=== PATIENT | female | born 1965 | race Caucasian/White ===

== ENCOUNTER 2021-03-23 16:44 | Emergency (ER) | payer OTHER ==
[2021-03-23 16:52] VITALS: TEMP 98.6
[2021-03-23] MEDS ORDERED: SODIUM CHLORIDE 1,000 ML IV STA (16:55)
[2021-03-23] MEDS ORDERED: ONDANSETRON 4 MG/2 ML VIAL IVPUSH ONE ×2 (16:55→18:38)
[2021-03-23] MEDS ORDERED: ACETAMINOPHEN 1000 MG/100 ML VIAL (NON FORMULARY) IVPB ONE (17:15)
[2021-03-23] MEDS ORDERED: METOCLOPRAMIDE HCL INJECTION 10 MG/2 ML VIAL IVPUSH ONE (17:15)
[2021-03-23] MEDS ORDERED: ONDANSETRON 4 MG/2 ML VIAL ONE ×2 (17:38→18:40)
[2021-03-23 17:46] LABS: HEMATOCRIT 22.6 % (32.4-45.2); HEMOGLOBIN 8.7 GM/dl (10.7-15.3); MCH 36.9 pg (25.7-33.7); MCHC 38.5 g/dl (32.0-36.0); MEAN CELL VOLUME 95.8 fl (80-96); MEAN PLT VOLUME 7.5 fl (7.5-11.1); RBC 2.36 M/mm3 (3.60-5.2); RDW 15.3 % (11.6-15.6)
[2021-03-23 17:54] LABS: ACTIVATED PTT 23.2 SECONDS (25.2-36.5)
[2021-03-23 17:55] LABS: WHITE BLOOD COUNT 235.9 K/mm3 (4.0-10.8)
[2021-03-23 17:56] LABS: PLATELET COUNT 47 K/MM3 (134-434)
[2021-03-23 17:59] LABS: INR 1.65 (0.82-1.09); PROTHROMBIN TIME (PATIENT) 17.9 SEC (10.2-13.0)
[2021-03-23 17:59] LABS: ALBUMIN 3.2 g/dl (3.4-5.0); ALK PHOS 123 U/L (45-117); ANION GAP 11 MMOL/L (8-16); BILIRUBIN,TOTAL 0.7 mg/dl (0.2-1); CALCIUM 8.3 mg/dl (8.5-10); CHLORIDE 102 mmol/L (98-107); CO2 22 mmol/L (21-32); CREATININE 0.8 mg/dl (0.55-1.3); GLUCOSE,RANDOM 138 mg/dl (74-106); MAGNESIUM 1.8 mg/dL (1.8-2.4); SGOT/AST 71 U/L (15-37); SGPT/ALT 61 U/L (13-61); SODIUM 135 mmol/L (136-145); TOT PROT 6.5 g/dl (6.4-8.2)
[2021-03-23 18:31] LABS: VENOUS O2 SATURATION 94.4 % (70-80); VENOUS PCO2 32.8 mmHg (38-52); VENOUS PH 7.457 (7.310-7.410)
[2021-03-23 18:36] LABS: URIC ACID 8.8 mg/dl (2.6-7.2)
[2021-03-23] MEDS ORDERED: POTASSIUM CHLORIDE TABS 20 MEQ TABLET.ER (FP) PO ONE ×2 (18:37→18:40)
[2021-03-23 18:38] LABS: LIPASE 91 U/L (73-393)
[2021-03-23] MEDS ORDERED: KCL 10 MEQ IVPB 10 MEQ/100 ML INFUS.BAG IVPB ONE (18:40)
[2021-03-23 18:44] LABS: N-TERMINAL BNP 237.4 pg/ml (5-125)
[2021-03-23] MEDS ORDERED: KCL 10 MEQ IVPB 10 MEQ/100 ML INFUS.BAG IVPB SCH (18:45)
[2021-03-23] MEDS ORDERED: SODIUM CHLORIDE 0.9% 1000 ML INFUS.BAG IV ONE (18:45)
[2021-03-23 18:55] VITALS: BMI 42.6
[2021-03-23 19:02] LABS: PLATELET ESTIMATE DECREASED
[2021-03-23 19:30] VITALS: BP 120/69; PULSE 111
[2021-03-23] MEDS ORDERED: ALLOPURINOL 300 MG TABLET (FP) PO ONE (19:34)
== END 2021-03-23 20:51 | disposition short-term general hospital (02) ==
LOC: FER 16:44
PROC: 3E033NZ Introduction of Analgesics, Hypnotics, Sedatives into Peripheral Vein, Percutaneous Approach (ICD-10-PCS; principal; 2021-03-23)
PROC: 3E033GC Introduction of Other Therapeutic Substance into Peripheral Vein, Percutaneous Approach (ICD-10-PCS; 2021-03-23)
PROC: 3E0337Z Introduction of Electrolytic and Water Balance Substance into Peripheral Vein, Percutaneous Approach (ICD-10-PCS; 2021-03-23)
DX: D72.829 Elevated white blood cell count, unspecified (principal); D64.9 Anemia, unspecified; D69.6 Thrombocytopenia, unspecified; E87.6 Hypokalemia
CPT/HCPCS: 36415; 70450-TC; 70486-TC; 71045-TC-FY; 71250-TC; 74176-TC; 80053; 82550; 82803; 83605; 83615; 83690; 83735; 83880; 84132; 84484; 84550; 85025; 85384; 85610; 85730; 87040; 87804; 93005; 99285-25; C9803; J0131; U0003; U0005